=== PATIENT | male | born 1990 | race Caucasian/White ===

== ENCOUNTER 2022-11-10 04:38 | Emergency (ER) | payer BC, SELFPAY ==
[2022-11-10] MEDS ORDERED: NA CHLORIDE 0.9% 1,000 ML ONE (04:47)
[2022-11-10 04:59] LABS: Urine Blood Trace-intact (Negative); Urine Glucose Negative (Negative); Urine Protein Negative (Negative); Urine Specific Gravity 1.025 (1.005-1.030); Urine pH 6.5 (5.0-7.0)
[2022-11-10 05:16] LABS: ALT/SGPT 18 U/L (16-61); AST/SGOT 12 U/L (15-37); Albumin 3.9 g/dL (3.4-5.0); Alkaline Phosphatase 66 U/L (45-117); BUN Blood Urea Nitrogen 12 mg/dL (7-18); Bicarbonate 30 mmol/L (21-32); Bilirubin Direct < 0.1 mg/dL (0-0.2); Bilirubin Total 0.2 mg/dL (0.2-1.0); Glomerular Filtration Rate 103 ml/min (=/>90); Glucose Level 106 mg/dL (74-106); Potassium 3.9 mmol/L (3.5-5.1); Protein, Total 7.3 g/dL (6.4-8.2); Sodium Level 139 mmol/L (136-145)
[2022-11-10 05:18] LABS: Absolute Lymphocytes (CBC) 3.2 K/uL (0.7-4.9); Hematocrit 39.6 % (39.6-49.0); Lymphocytes % 42.6 % (15.3-44.8); MCV 92.9 fL (80-100); MPV 7.8 fL (7.6-11.3); RBC Red Blood Cell Count 4.27 M/uL (4.33-5.43)
[2022-11-10 05:19] LABS: Protime INR 0.95
[2022-11-10 05:24] LABS: Barbiturates NEGATIVE (NEGATIVE); Benzodiazepines POSITIVE (NEGATIVE); Cocaine POSITIVE (NEGATIVE); METHAMPHETAM POSITIVE (NEGATIVE); Methadone NEGATIVE (NEGATIVE); Opiates NEGATIVE (NEGATIVE); Phencyclidine NEGATIVE (NEGATIVE); THC Cannibis POSITIVE (NEGATIVE)
--- NOTE | 2022-11-10 09:46 | ER ---
Nurse's Notes [facility] Name: Denisse Crandall Age: 32 yrs Sex: Male : 1990 Arrival Date: 11/10/2022 Time: 04:41 Bed 17 Private MD: Diagnosis: Other psychoactive substance abuse with intoxication Presentation: 11/10 04:50 Chief complaint: EMS states: they were toned out to a hotel for report of pt with bb altered mental status responsive to pain only. Coronavirus screen: At this time, the client does not indicate any symptoms associated with coronavirus-19. Ebola Screen: No symptoms or risks identified at this time. Initial Sepsis Screen: Does the patient meet any 2 criteria? No. Patient's initial sepsis screen is negative. Does the patient have a suspected source of infection? No. Patient's initial sepsis screen is negative. Risk Assessment: Do you want to hurt yourself or someone else? Patient reports no desire to harm self or others. Onset of symptoms is unknown. 04:50 Method Of Arrival: EMS: [facility] bb 04:50 Acuity: ANTOINETTE 2 bb Historical: - Allergies: 04:56 Unable to obtain; bb - Home Meds: 04:56 Unable to obtain [Active]; bb - PMHx: 04:56 Unable to Obtain; bb - PSHx: 04:56 Unable to Obtain; bb - Immunization history:: Adult Immunizations unknown. - Social history:: Smoking status: unknown. Screenin:[address] [facility] ED Fall Risk Assessment (Adult) Confusion or Disorientation Yes (5 pts) as6 Intoxicated or Sedated Yes (3 pts) Score/Fall Risk Level 3 or more points = High Risk Maintained a safe environment. Abuse screen: Denies threats or abuse. Denies injuries from another. Nutritional screening: No deficits noted. Tuberculosis screening: No symptoms or risk factors identified. Assessment: 05:08 General: Appears in no apparent distress. well developed, Behavior is unresponsive. pf1 Patient responded to IV start and tried to pull his right arm away. . Pain: Unable to use pain scale. Patient is unresponsive. Neuro: Level of Consciousness is unresponsive, patient has unlabored breathing. Oriented to patient unable to answer questions at this time.. Cardiovascular: Capillary refill < 3 seconds Patient's skin is warm and dry. Respiratory: Airway is patent Trachea midline Respiratory effort is even, unlabored, Respiratory pattern is regular, symmetrical, Breath sounds are clear bilaterally. GI: No deficits noted. Abdomen is flat, non-distended, Bowel sounds present X 4 quads. : No deficits noted. EENT: No deficits noted. No signs and/or symptoms were reported regarding the EENT system. Derm: No deficits noted. No signs and/or symptoms reported regarding the dermatologic system. Musculoskeletal: No deficits noted. No signs and/or symptoms reported regarding the musculoskeletal system. 05:10 Reassessment: Patient appears in no apparent distress at this time. No changes from pf1 previously documented assessment. Patient and/or family updated on plan of care and expected duration. Pain level reassessed. Parents at the BS. Patient pending test results. Family members updated on plan of care. Family verbalized plan of care understanding. Continue monitoring patient. . 05:56 Reassessment: Patient appears in no apparent distress at this time. No changes from pf1 previously documented assessment. Patient and/or family updated on plan of care and expected duration. Pain level reassessed. Patient still not responding to verbal stimuli. No acute distress noted. Parents at the BS. Patient resting on stretcher, side rails up x 2, call light at BS, lights dimmed, Patient connected to cardiac monitoring. Continue monitoring patient. . 06:30 General: Parents stated the girlfriend stated patient was unresponsive and making a pf1 gurgling sound and took some unknown pills last night,onset at 0330 this AM. . 07:15 Reassessment: Patient and/or family updated on plan of care and expected duration. Pain ap3 level reassessed. Bedside report received from Alana RN. Family at bedside. Respiratory: Airway is patent Respiratory effort is even, unlabored, Respiratory pattern is regular, symmetrical. Vital Signs: 04:50 BP 99 / 55; Pulse 61; Resp 16 S; Temp 97.6(A); Pulse Ox 100% on R/A; Weight 63.5 kg bb (R); Height 5 ft. 7 in. (170.18 cm) (R); 05:13 BP 114 / 92; Pulse 74; Resp 15; Pulse Ox 100% on R/A; pf1 06:01 BP 108 / 81; Pulse 66; Resp 15; Pulse Ox 100% on R/A; pf1 06:59 BP 117 / 91; Pulse 77; Resp 13 S; Pulse Ox 100% on R/A; as6 07:57 BP 107 / 80; Pulse 75; Resp 15; Pulse Ox 100% on R/A; ap3 08:49 BP 115 / 84; Pulse 71; Resp 15; Pulse Ox 100% ; ap3 09:28 BP 120 / 93; Pulse 64; Resp 15; Pulse Ox 100% on R/A; ap3 04:50 Body Mass Index 21.93 (63.50 kg, 170.18 cm) bb 04:50 ht and weight estimated bb ED Course: 04:41 Patient arrived in ED. as6 04:55 Inserted saline lock: 20 gauge in right antecubital area, using aseptic technique. kd3 Blood collected. 04:55 Straight cath inserted, using sterile technique, Specimen obtained. kd3 04:56 Triage completed. bb 04:56 Arm band placed on Patient placed in an exam room, on a stretcher, on bus driver/monitor, bb on pulse oximetry. EKG completed in triage. Results shown to MD. 04:59 Placed in gown. Bed in low position. Call light in reach. Side rails up X2. Client as6 placed on continuous cardiac and pulse oximetry monitoring. NIBP monitoring applied. Warm blanket given. 05:07 Annita pereira, ANGY is Primary Nurse. pf1 05:38 CT Head Brain wo Cont In Process Unspecified. EDMS 06:04 Dimitris Cox MD is Attending Physician. kdr 07:03 Attending Physician role handed off by Dimitris Cox MD rt 07:03 Santiago Bravo MD is Attending Physician. rt 09:28 Pt visited by mother, sister. ap3 09:50 No provider procedures requiring assistance completed. IV discontinued, intact, ap3 bleeding controlled, No redness/swelling at site. Pressure dressing applied. Administered Medications: 04:51 Drug: NS 0.9% 1000 ml Route: IV; Rate: 1 bolus; Site: right antecubital; as6 05:50 Follow up: Response: No adverse reaction pf1 06:58 Follow up: IV Status: Completed infusion; IV Intake: 1000ml pf1 Medication: 05:00 VIS not applicable for this client. as6 Intake: 06:58 IV: 1000ml; Total: 1000ml. pf1 Outcome: 09:46 Discharge ordered by . rt 09:50 Discharged to home ambulatory, with family. ap3 09:50 Condition: good 09:50 Discharge instructions given to patient, family, Instructed on discharge instructions, follow up and referral plans. Demonstrated understanding of instructions, follow-up care. 09:50 Patient left the ED. ap3 Signatures: Dispatcher [employer] EDMS Dimitris Cox MD MD kdr Claudia Rivera RN RN bb Missy Ferreira RN RN ap3 Kj Gates RN RN as6 Charlotte Santoro RN RN kd3 Santiago Bravo MD MD rt Annita pereira RN RN pf1
--- NOTE | 2022-11-10 09:46 | EDPHYS ---
Physician Documentation [facility] Name: Denisse Crandall Age: 32 yrs Sex: Male : 1990 Arrival Date: 11/10/2022 Time: 04:41 Bed 17 Private MD: ED Physician Santiago Bravo HPI: 11/10 06:30 This 32 yrs old Male presents to ER via EMS with complaints of Altered mental status. kdr 06:30 At that EMS and family report that the patient has been poorly responsive since around kdr 3 or 330. Time that the girlfriend began calling people because he was not responding. Patient apparently has a history of drug abuse and overdoses. The patient vital signs are good and he does not require immediate intervention or intubation.. Onset: The symptoms/episode began/occurred just prior to arrival. Severity of symptoms: At their worst the symptoms were mild moderate incapacitating in the emergency department the symptoms are unchanged. 06:31 It is unknown whether or not the patient has had similar symptoms in the past, kdr Family/girlfriend report that the patient has had prior episodes of overdose but this is the first time he has been to this facility. It is unknown whether or not the patient has recently seen a physician. Historical: - Allergies: 04:56 Unable to obtain; bb - Home Meds: 04:56 Unable to obtain [Active]; bb - PMHx: 04:56 Unable to Obtain; bb - PSHx: 04:56 Unable to Obtain; bb - Immunization history:: Adult Immunizations unknown. - Social history:: Smoking status: unknown. ROS: 06:31 Constitutional: Unobtainable secondary to the person's altered mental status and kdr obtundation 06:31 Unable to obtain ROS due to altered mental status, comatose state, obtunded state. Exam: 06:31 Constitutional: This is a well developed, well nourished patient who is obtunded but kdr in no acute distress. Head/Face: Normocephalic, atraumatic. Eyes: Pupils equal round and reactive to light, extra-ocular motions intact. Lids and lashes normal. Conjunctiva and sclera are non-icteric and not injected. Cornea within normal limits. Periorbital areas with no swelling, redness, or edema. Neck: Trachea midline, no thyromegaly or masses palpated, and no cervical lymphadenopathy. Supple, full range of motion without nuchal rigidity, or vertebral point tenderness. No Meningismus. Chest/axilla: Normal chest wall appearance and motion. Nontender with no deformity. No lesions are appreciated. Cardiovascular: Regular rate and rhythm with a normal S1 and S2. No gallops, murmurs, or rubs. Normal PMI, no JVD. No pulse deficits. Respiratory: Lungs have equal breath sounds bilaterally, clear to auscultation and percussion. No rales, rhonchi or wheezes noted. No increased work of breathing, no retractions or nasal flaring. Abdomen/GI: Soft, non-tender, with normal bowel sounds. No distension or tympany. No guarding or rebound. No evidence of tenderness throughout. Back: No spinal tenderness. No costovertebral tenderness. Full range of motion. Skin: Warm, dry with normal turgor. Normal color with no rashes, no lesions, and no evidence of cellulitis. MS/ Extremity: Pulses equal, no cyanosis. Neurovascular intact. Full, normal range of motion. 06:31 Neuro: Orientation: unable to test, Mentation: unable to test, Memory: unable to test. 06:50 ECG was reviewed by the Attending Physician. kdr Vital Signs: 04:50 BP 99 / 55; Pulse 61; Resp 16 S; Temp 97.6(A); Pulse Ox 100% on R/A; Weight 63.5 kg bb (R); Height 5 ft. 7 in. (170.18 cm) (R); 05:13 BP 114 / 92; Pulse 74; Resp 15; Pulse Ox 100% on R/A; pf1 06:01 BP 108 / 81; Pulse 66; Resp 15; Pulse Ox 100% on R/A; pf1 06:59 BP 117 / 91; Pulse 77; Resp 13 S; Pulse Ox 100% on R/A; as6 07:57 BP 107 / 80; Pulse 75; Resp 15; Pulse Ox 100% on R/A; ap3 08:49 BP 115 / 84; Pulse 71; Resp 15; Pulse Ox 100% ; ap3 09:28 BP 120 / 93; Pulse 64; Resp 15; Pulse Ox 100% on R/A; ap3 04:50 Body Mass Index 21.93 (63.50 kg, 170.18 cm) bb 04:50 ht and weight estimated bb MDM: 06:31 Data reviewed: vital signs, nurses notes, lab test result(s), radiologic studies. kdr Consideration of Admission/Observation Patient was admitted/placed on observation. Will observe the patient until he metabolizes the ingested substances. At this time he is only arousable to sternal rub. His vital signs are totally normal and stable. Patient is currently stable and and in nontoxic situation. 07:04 Patient medically screened. rt 09:46 Differential Diagnosis Intracranial hemorrhage, substance abuse, dysrhythmia, rt electrolyte imbalance, rhabdomyolysis. Test considered but Not performed: MRI: No lateralizing deficits, low suspicion for CVA. Historians other than the Patient: Parent: Discussed history with patient's mother. Care significantly affected by the following Social Determinants of Health: Misuse of alcohol and/or drugs. Special discussion: I discussed with the patient/guardian in detail that at this point there is no indication for admission to the hospital. It is understood, however, that if the symptoms persist or worsen the patient needs to return immediately for re-evaluation. ED course: I assumed care at shift change, patient with negative work-up other than multiple positives on UDS. After period of observation, he is awake, alert, oriented and fully ambulatory without difficulty. No further work-up indicated in the ED, patient stable for outpatient care. 11/10 04:43 Order name: Acetaminophen; Complete Time: 06:18 11/10 04:43 Order name: Basic Metabolic Panel; Complete Time: 06:18 11/10 04:43 Order name: CBC with Diff; Complete Time: 06:18 11/10 04:43 Order name: ETOH Level; Complete Time: 06:18 11/10 04:43 Order name: Hepatic Function; Complete Time: 06:18 11/10 04:43 Order name: PT-INR; Complete Time: 06:18 11/10 04:43 Order name: Ptt, Activated; Complete Time: 06:18 11/10 04:43 Order name: Salicylate; Complete Time: 06:18 11/10 04:43 Order name: Urine Drug Screen; Complete Time: 06:18 11/10 04:43 Order name: EKG; Complete Time: 04:43 11/10 04:43 Order name: EKG - Nurse/Tech; Complete Time: 04:57 as6 11/10 04:58 Order name: CT Head Brain wo Cont 11/10 04:59 Order name: Urine Dipstick-Ancillary; Complete Time: 06:18 EDMT 11/10 04:43 Order name: IV Saline Lock; Complete Time: 04:57 as6 11/10 04:43 Order name: Labs collected and sent; Complete Time: 04:57 as6 11/10 04:43 Order name: Suicide Screening ([place]); Complete Time: 09:50 as11/10 04:43 Order name: Urine Dipstick-Ancillary (obtain specimen); Complete Time: 04:58 as EC:50 Rate is 66 beats/min. Rhythm is regular, Normal Sinus Rhythm with No ectopy. QRS Jenkinjones kdr is Normal. MD interval is normal. QRS interval is normal. QT interval is normal. Clinical impression: Normal ECG. Administered Medications: 04:51 Drug: NS 0.9% 1000 ml Route: IV; Rate: 1 bolus; Site: right antecubital; as6 05:50 Follow up: Response: No adverse reaction pf1 06:58 Follow up: IV Status: Completed infusion; IV Intake: 1000ml pf1 Disposition Summary: 11/10/22 09:46 Discharge Ordered Location: Home rt Problem: new rt Symptoms: are resolved rt Condition: Stable rt Diagnosis - Other psychoactive substance abuse with intoxication rt Followup: rt - With: Private Physician - When: 2 - 3 days - Reason: Discharge Instructions: - Discharge Summary Sheet rt - Illegal Drug Use Information, Adult rt Forms: - Medication Reconciliation Form rt - Thank You Letter rt - Antibiotic Education rt - Prescription Opioid Use rt Signatures: Dispatcher [employer] [facility] Dimitris Cox MD MD kdr Ballard, Brenda, RN RN bb Kj Gates RN RN as6 Santiago Bravo MD MD rt Annita pereira RN pf1
[2022-11-10 10:31] VITALS: O2SAT 100
[2022-11-10 10:41] VITALS: BP 120/93
--- NOTE | 2022-11-10 12:27 | RAD REPORT ---
EXAM DESCRIPTION: CT - Head Brain Wo Cont - 11/10/2022 6:53 am CLINICAL HISTORY: The patient is 32 years old and is Male; MENTAL STATUS CHANGE TECHNIQUE: Axial computed tomography images of the head/brain without intravenous contrast. Sagitt al and coronal reformatted images were created and reviewed. This CT exam was performed using one o r more of the following dose reduction techniques: automated exposure control, adjustment of the mA and/or kV according to patient size, and/or use of iterative reconstruction technique. COMPARISON: No relevant prior studies available. FINDINGS: BRAIN: Low-lying bilateral cerebellar tonsils incidentally noted. No extra-axial fluid collection. No intracranial hemorrhage. No transtentorial herniation. No focal damon-white matter differentiation abnormality. MIDLINE SHIFT: No midline shift. VENTRICLES: Unremarkable. No ventriculomegaly. BONES/JOINTS: Remote appearing bilateral nasal bone fractures. No fracture of the calvarium or visualized facial bones. SOFT TISSUES: Unremarkable. SINUSES: Unremarkable as visualized. No acute sinusitis. MASTOID AIR CELLS: Unremarkable as visualized. No mastoid effusion. IMPRESSION: No acute intracranial abnormality. Electronically signed by: Cuauhtemoc Yadav MD 11/10/2022 5:48 AM EXPLOSIVES HANDLER Due to temporary technical issues with the PACS/Fluency reporting system, reports are being signed by the in house radiologists without review as a courtesy to insure prompt reporting. The interpreting radiologist is fully responsible for the content of the report.
--- NOTE | 2022-11-10 16:00 | EKG ---
Test Date: 2022-11-10 Test Time: 04:56:18 Top Case Assembler: MEASUREMENT RESULTS: Intervals: Rate: 66 DC: 126 QRSD: 100 QT: 394 QTc: 413 [place]: P: 34 DC: 126 QRS: 78 T: 59 INTERPRETIVE STATEMENTS: Normal sinus rhythm Normal ECG No previous ECG available for comparison Electronically Signed On 11-10-22 15:59:56 HAIR WORKER by Juan Lao
== END 2022-11-10 09:50 | disposition home or self-care (01) ==
LOC: ER 04:38
DX: F19.129 Other psychoactive substance abuse with intoxication, unspecified (principal)
CPT/HCPCS: 36415; 51702; 70450; 80048; 80076; 80307; 81003; 85025; 85610; 85730; 93005; 96360; 96361; 99284; G0480; J7030